=== PATIENT | female | born 1995 | race Caucasian/White ===

== ENCOUNTER 2017-08-02 23:05 | Day surgery (SDC) | payer SELFPAY ==
[2017-08-02 23:33] VITALS: BMI 24.6
--- NOTE | 2017-08-03 08:15 | ULT ---
PRELIMINARY REPORT/[facility]/EMERGENCY AFTER HOURS PROCEDURE: EXAM: US After First Trimester, Transabdominal US , Transvaginal CLINICAL HISTORY: 21 years old, female; Pain; Other: Cramping; Gestational age or lmp: 20wks; TECHNIQUE: Real-time transabdominal and endovaginal obstetrical ultrasound of the maternal pelvis and a second o r third trimester with image documentation. Endovaginal imaging was used for evaluation of the cervix. COMPARISON: No relevant prior studies available. FINDINGS: Real-time transabdominal and endovaginal obstetrical ultrasound. Endovaginal imaging was used for elzbieta luation of the cervix. Fetus: Single living intrauterine gestation. Heart rate: 137bpm Presentation: Vertex. Placenta: Anterior. No abruption. Amniotic fluid: Appears unremarkable. Anatomy: Not formally evaluated. BIOMETRICS Gestational age by US: 20w3d EFW: 331g - 34% MATERNAL: Uterus: No myometrial mass. Cervix: Abnormal shortening of the cervix measuring 8-9 mm in length. Free fluid: No significant free fluid. IMPRESSION: Single viable intrauterine . Cervical shortening. Thank you for allowing us to participate in the care of your patient. Dictated and Authenticated by: Zuhair Lentz MD 08/03/2017 2:29 AM Central Time ([place] & [place]) FINAL REPORT EMERGENT AFTER HOURS LIMITED OB ULTRASOUND: IMPRESSION: I agree with the preliminary interpretation given by [facility]. POS: [facility]
--- NOTE | 2017-08-03 09:04 | HP ---
DATE OF SERVICE: 08/03/2017 TIME OF SERVICE: 1600 hours. PRESENTING COMPLAINT: Vaginal discharge with a history of a shortened cervix. HISTORY OF PRESENT ILLNESS: Ms. Foster is a 21-year-old primigravida with an EDC of 12/19/2017, plac ing her at 20 weeks and 1 day, who is seen by Nasra Sousa at [facility]. She wa s noted on ultrasound at 20 weeks to have a cervical length of 1.3 cm with funneling. This was on . She was started on Prometrium 200 per vagina bedtime at that time. Referral was initiated to [facility] on 07/30/2017; however, the patient has not heard back f [facility] at this time. She comes in tonight, complaining of passing some mucousy discharge, which she thought might be her cervical plug approximately 3-4 hours after administering the Prometrium. She denies regular contractions. She does complain of mild cramping. OB AND COUNTER SERVER HISTORY: Ectopic x1 with salpingectomy on the left. PAST MEDICAL HISTORY: None. PAST SURGICAL HISTORY: None. Of note, the patient has no history of gynecologic procedures performed on her cervix. RUSH is based on a 6-week 2-day crown-rump length and LMP. OB LABS: Blood type is A positive, antibody negative, Pap negative, rubella immune, GC chlamydia neg ative. Had initial OB visit on 04/2017. PHYSICAL EXAMINATION: GENERAL: White female, in no acute distress. VITAL SIGNS: Temperature 99.3, respirations 18, pulse 109, blood pressure 139/78. HEENT: Within normal limits. LUNGS: Clear to auscultation bilaterally. HEART: Regular rate and rhythm. BREASTS: Without masses bilaterally. ABDOMEN: Soft and nontender, without palpable contractions. FHTs 140s to 150s. PELVIC: Vulva had lesions. Vagina without significant discharge. Cervix is visibly closed, digital ly it feels approximately 50% to 75% effaced, presenting part cannot be noted. EXTREMITIES: Without clubbing, cyanosis, or edema. RADIOLOGY: Ultrasound reveals vertex presentation. Heart rate of 137 and a cervical length of 8 to 9 mm and EFW of 331 grams consistent with 20 weeks 3 days. IMPRESSION: Shortened cervix without dilatation at 20 weeks. PLAN: Discussed with the patient, the complicated nature of treatment and the less than ideal treatm ent options for this issue at this gestational age. We will repeat ultrasound, which was performed a round midnight at approximately 0800 and reevaluate cervical length. If no significant change in cer vical length, we will contact [facility] and consider referral for rescue cerclage.
--- NOTE | 2017-08-03 10:13 | SS ---
DATE OF SERVICE: 08/03/2017 REGULAR PHYSICIAN: Nasra Sousa CNM, [facility]. EVALUATING PHYSICIAN: Fransisco Stapleton M.D. HISTORY OF PRESENT ILLNESS: Ms. Foster is a 21-year-old white G2, P0-0-1-0 with an estimated date of confinement of 12/19/2017 who was admitted by Dr. Gasca last night complaining of vaginal discharge . This patient has been followed by Nasra Sousa at [facility] and was noted to have a short cervix last week of 1.2 cm. She was reevaluated upon her admission at midnight and had a cervix at that time that was 0.9 cm long, but the external os was closed. She was reevaluated this morning and had made no cervical shortening since that time. I did contact [facility] and spoke with Dr. Allie Aiken for consideration of cercl age. I did review the case in detail with her and at this time, she does not believe that the patien t is a candidate for a cerclage. She has suggested that the patient be put on 200 mg of vaginal prog esterone at night and to continue bed rest at home. I have already started the process by submitting an order to [facility] maternal medicine unit and I have faxed that information for her referral. I have given her prescription for vaginal progesterone 200 mg for her to fill and use. I have instructed her to follow up immediately on Saturday morning with Nasra sousa to facilitate her evaluation at [facility]. She was given complete labor and incompetent cervix precauti ons and she understands these and she was sent home in good condition.
--- NOTE | 2017-08-03 10:32 | ULT ---
LIMITED OB ULTRASOUND: Date; 08/03/17 PROVIDED CLINICAL HISTORY: Assess cervical length. FINDINGS: Comparison made with examination performed earlier same date. Single live intrauterine gestation is again documented with heart rate of 136 beats/minute. Cer vical length is approximately 9.0 mm. The internal cervical os appears mildly wider than on the prior study. IMPRESSION: Cervical shortening with early cervical funneling not excluded. POS: [facility]
== END 2017-08-03 10:15 | disposition home or self-care (01) ==
LOC: L&D/OP 23:05 → L&D 08-03 07:27 → L&D/OP 08-03 10:15
PROVIDERS: ATTEND Obstetrics & Gynecology
DX: O99.89 Other specified diseases and conditions complicating pregnancy, childbirth and the puerperium (principal); N89.8 Other specified noninflammatory disorders of vagina; R10.9 Unspecified abdominal pain; O26.872 Cervical shortening, second trimester; O09.12 Supervision of pregnancy with history of ectopic pregnancy, second trimester; Z3A.20 20 weeks gestation of pregnancy; Z79.899 Other long term (current) drug therapy
CPT/HCPCS: 76815